=== PATIENT | male | born 1970 | race Caucasian/White ===

== ENCOUNTER 2024-01-01 21:19 | Emergency (ER) | payer BC, SELFPAY ==
[2024-01-01 21:21] VITALS: BP 120/82
[2024-01-01] MEDS: GENOPTIC 0.3% EYE DROPS 1 DROP OPHTH (22:59)
--- NOTE | 2024-01-02 01:09 | ED.GENMED ---
History of Present Illness
General
Chief Complaint: Eye Problems
Source: patient
Exam Limitations: none
Time Seen by Provider: 01/01/24 21:26
Travel History
Have you had any contact with someone who has COVID-19?: No
Do you have any symptoms of coronavirus? Fever > 100 degrees, chills, cough, shortness of breath, sore throat, loss of taste or smell, muscle aches, or headache?: No
History of Present Illness
History of Present Illness:
53-year-old male who was doing yard work today was also power washing. He states when he got into the shower he felt something in his eye and now has difficulty closing his eye due to pain. Patient is some tearing. Denies vision changes.
Past History
Past History
ED Past Medical History: None
Social History
Tobacco: Non-smoker
Living: with family
Employment: Employed
Phy Exam
Physical Exam
Physical Exam:
CONSTITUTIONAL Vital signs reviewed, Patient alert and oriented to person, place and time. Well-appearing
HEAD atraumatic, normocephalic.
EYES eyelids normal to inspection, Extraocular muscles intact, left sclera injected, no fluorescein uptake, no Adeola's, foreign body noted embedded in the cornea at about the 7 o'clock position of the left cornea.
NECK normal range of motion, Trachea midline, no jugular venous distention.
RESP no respiratory distress
BACK No obvious deformities
UPPER EXTREMITY Gross Range of motion normal, gross motor strength normal
LOWER EXTREMITY Gross range of motion normal, Gross motor strength normal
NEURO Speech normal, No focal motor deficits include, Mariya coma scale 15, Memory normal, Cranial Nerves intact to screening exam.
SKIN Skin warm, dry, and normal in color.
PSYCHIATRIC Patient oriented to person place and time, Normal affect.
Course
Orders/Labs/Results
Orders:
Orders
01/01/24 22:45
Gentamicin [Genoptic 0.3% Eye Drops] See Dose Instructions OPHTH NOW STA
01/01/24 23:07
Fluorescein Sodium [Ful-Brittany] 1 mg .ROUTE .STK-MED ONE
Tetracaine HCl [Tetracaine 0.5% Ophthalmic Solution] 1 drop .ROUTE .STK-MED ONE
01/01/24 23:08
Purified Water Eye Wash [Dacriose Eye Wash Solution] 120 ml .ROUTE .STK-MED ONE
Vital Signs
Initial and Last Documented VS:
Initial Vital Signs
Temp Pulse Resp BP Pulse Ox
98 F 50 16 120/82 97
01/01/24 21:21 01/01/24 21:21 01/01/24 21:21 01/01/24 21:21 01/01/24 21:21
Last Documented Vital Signs
Temp Pulse Resp BP Pulse Ox
98 F 50 16 120/82 97
01/01/24 21:21 01/01/24 21:21 01/01/24 21:21 01/01/24 21:21 01/01/24 21:21
Procedures
Eye Procedures
Anesthesia: other (Tetracaine)
Removal of corneal foreign body with: direct visualization, slit lamp, use of corneal jesse and corneal scraping
Foreign body removal was: complete
After removal was there a corneal abrasion?: no corneal damage noted (Foreign body removed by me. Dr. Crawley was able to use corneal bur to remove rust ring.)
MDM/Problems Addressed
MDM/Problems Addressed:
Embedded corneal foreign body
*Pulse Oximetry
Patient hypoxic: no
*Critical Care Note
Total Time (30-74mins, 75-104mins- exclusive of procedures): Not Applicable
Data Reviewed
Source: patient
Patient Management
Escalation/DeEscalation of care consider admission/obs:
Ophthalmology follow-up, antibiotics, return for progressive symptoms. No evidence of globe rupture
ED Attending Note
-
Portions of this chart may have been created with voice recognition software.� Occasional wrong word or��sound alike� substitutions may have occurred due to the inherent limitations of voice recognition software.
Discharge Plan
Departure
Patient Disposition: Home (Routine Discharge)
Date of Disposition: 01/01/24
Time of Disposition: 22:46
Patient with high blood pressure during this ER visit?: No
Condition: Good
Discharge Problem:
Foreign body in cornea, left eye, initial encounter
Instructions: Corneal Abrasion (DC), How to Use Eye Drops, Foreign Body in Eye (DC)
Prescriptions:
New
gentamicin 0.3 % drops
1 drp ophthalmic (eye) QID Qty: 5 0RF
tetracaine HCl (PF) 0.5 % drops
1 drp ophthalmic (eye) Q2HPRN PRN (Reason: eye pain) 2 Days Qty: 2.5 0RF
Referrals:
Roderick Carranza MD [Active] - Follow up in 2-3 days
Frankie Lanza DO [Family Provider] -
Interventions
Interventions:
*Risk Screen - Suicide Last Done: 01/01/24 21:21
*General Assessment Last Done: 01/01/24 21:55
*Neglect/Abuse Screening Last Done: 01/01/24 21:21
ED- Fall Risk Assessment Last Done: 01/01/24 21:55
*ED COVID-19 Vaccine History Last Done: 01/01/24 21:55
*Nursing Disposition Last Done: 01/01/24 23:10
Discharge Date and Time
Discharge Date/Time: 01/01/24 23:10
Print Language: LAO
== END 2024-01-01 23:10 | disposition home or self-care (01) ==
LOC: EMR 21:19
PROVIDERS: EMERGENCY PHYSICIAN Emergency Medicine; FAMILY PHYSICIAN Family Medicine
DX: T15.02XA Foreign body in cornea, left eye, initial encounter (principal); W44.9XXA Unspecified foreign body entering into or through a natural orifice, initial encounter; Y93.H2 Activity, gardening and landscaping
CPT/HCPCS: 99283; 65205